=== PATIENT | female | born 1965 | race Caucasian/White ===

== ENCOUNTER → 2020-01-18 07:50 | Outpatient (BNVA) | payer OTHER, SELFPAY | PROVIDERS: PCP Internal Medicine; Referring Provider Internal Medicine; Visit Provider Obstetrics & Gynecology | DX: Z76.89 Persons encountering health services in other specified circumstances (principal) ==

== ENCOUNTER 2020-01-31 07:17 | Outpatient (REF) | payer OTHER, SELFPAY ==
--- NOTE | 2020-01-31 07:21 | MM_ITS ---
EXAMINATION: MM SCREENING DIGITAL BREAST TOMOSYNTHESIS, BILATERAL CLINICAL INFORMATION: Screening. Asymptomatic. The lifetime risk of breast cancer based on the Tyrer-Cuzick Model is 13%. COMPARISON: Mammography: 01/22/2019, 12/23/2017 TECHNIQUE: Digital breast tomosynthesis is performed in both the craniocaudal and mediolateral oblique views along with computer-aided detection (CAD). Synthesized 2D images are generated from the tomosynthesis. Additional left MLO view is provided. FINDINGS: The breasts are heterogeneously dense, which may obscure small masses (ACR BI-RADS breast composition Category c). Breast tissue composition borders on average fibroglandular. There are no significant masses, abnormal calcifications, or other abnormalities. MM/MM tomosynthesis screening BI IMPRESSION: No mammographic evidence of malignancy. ASSESSMENT: BI-RADS 1: Negative RECOMMENDATION: Routine annual mammography screening. This patient's information was entered into a reminder system with a target due date for their next mammogram.
== END 2020-01-31 07:18 | disposition home or self-care (01) ==
LOC: HO.MAMMO 07:17
PROVIDERS: PCP Internal Medicine; Visit Provider Internal Medicine
DX: Z12.31 Encounter for screening mammogram for malignant neoplasm of breast (principal)
CPT/HCPCS: 77063; 77067

== ENCOUNTER 2021-05-04 05:59 | Outpatient (REF) | payer OTHER, SELFPAY ==
[2021-05-04 06:10] LABS: MANUAL DIFF FLAG NO
[2021-05-04 07:21] LABS: Basophils Absolute Auto 0.1 X10*3/uL (0.0-0.2); Basophils Percent Auto 1.1 % (0-2); Eosinophils Absolute Auto 0.2 X10*3/uL (0.0-0.4); Eosinophils Percent Auto 3.3 % (0-4); Hematocrit 41.5 % (37.0-47.0); Hemoglobin 13.7 g/dl (12.0-16.0); Imm Gran Abs Auto 0.01 X10*3/uL (0.00-0.03); Imm Gran Pct Auto 0.2 % (0.0-0.4); Lymphocytes Absolute Auto 1.8 X10*3/uL (1.2-4.9); Lymphocytes Percent Auto 28.1 % (20-40); Mean Corpuscular Hemoglobin 29.7 pg (27.0-33.0); Mean Platelet Volume 10.7 fL (9.4-12.3); Monocytes Absolute Auto 0.5 X10*3/uL (0.1-1.2); Neutrophils Absolute Auto 3.8 x10*3/uL (2.0-8.3); Neutrophils Percent Auto 59.3 % (45-73); Platelet Count 256 X10*3/uL (160-400); Red Blood Count 4.61 X10*6/uL (4.20-5.50); Red Cell Distribution Width 12.5 % (11.0-16.0); White Blood Count 6.4 X10*3/uL (4.8-10.8)
[2021-05-04 08:07] LABS: Alanine Aminotransferase 23 U/L (0-31); Albumin Level 4.5 g/dL (3.5-5.0); Alkaline Phosphatase 97 U/L (39-117); Anion Gap 11 (12-20); Aspartate Amino Transferase 17 U/L (5-31); Bilirubin Total 0.3 mg/dL (0.0-1.0); Blood Urea Nitrogen 14 mg/dL (9-16); Carbon Dioxide 29 mmol/L (22-29); Chloride 105 mmol/L (96-108); Cholesterol 303 mg/dL; Estimated Glomerular Filt Rate > 60; Glucose Fasting 103 mg/dL (60-99); HDL Cholesterol 39 mg/dL; LDL Cholesterol Calculated 226 mg/dl; Potassium 5.2 mmol/L (3.3-5.1); Sodium 140 mmol/L (135-145); Total Protein 7.2 g/dL (6.5-8.0); Triglycerides 193 mg/dL
== END 2021-05-04 06:00 | disposition home or self-care (01) ==
LOC: HO.LAB 05:59
PROVIDERS: PCP Internal Medicine; Visit Provider Internal Medicine
DX: Z00.00 Encounter for general adult medical examination without abnormal findings (principal)
CPT/HCPCS: 36415; 80053; 80061; 85025

== ENCOUNTER → 2021-06-14 13:29 | Outpatient (BNVA) | payer OTHER, SELFPAY | PROVIDERS: PCP Internal Medicine; Visit Provider Advanced Practice Midwife | DX: Z13.89 Encounter for screening for other disorder (principal) ==

== ENCOUNTER 2021-06-19 08:21 | Outpatient (REF) | payer OTHER, SELFPAY | END 2021-06-19 08:22 | disposition home or self-care (01) | LOC: HO.LAB 08:21 | PROVIDERS: Visit Provider Advanced Practice Midwife | DX: N90.89 Other specified noninflammatory disorders of vulva and perineum (principal) | CPT/HCPCS: 56605; 88305; 88312 ==

== ENCOUNTER → 2021-06-26 14:49 | Outpatient (BNVA) | payer OTHER, SELFPAY | PROVIDERS: PCP Internal Medicine; Visit Provider Advanced Practice Midwife | DX: Z13.89 Encounter for screening for other disorder (principal) ==

== ENCOUNTER 2021-07-11 14:23 | Outpatient (REF) | payer OTHER, SELFPAY ==
--- NOTE | ~2021-07-11 | MM_ITS ---
EXAMINATION: BONE DENSITOMETRY CLINICAL INDICATION: Nicotine dependence, unspecified, uncomplicated. COMPARISON: None (current study represents initial baseline exam). TECHNIQUE: Using a [employer] DXA System (software version: 13.1) manufactured by [employer], dual-energy x-ray absorptiometry was performed of the lumbar spine and left hip. The images are of good technical quality. Summary results are attached. FINDINGS: AP SPINE L1-L4: BMD 1.055 g/cm2, Z-score -0.8, T-score -1.0, normal. LEFT FEMUR, NECK: BMD 0.791 g/cm2, Z-score -1.1, T-score -1.8, osteopenia. LEFT FEMUR, TOTAL: BMD 0.870 g/cm2, Z-score -0.8, T-score -1.1, osteopenia. IDENTIFIED RISK FACTORS: Low calcium intake, tobacco use (current smoker), menopause. HISTORY OF FRACTURE: None listed. MEDICATIONS: None listed. MM/XR DEXA axial skeleton IMPRESSION: 1. DIAGNOSIS: Osteopenia based on the lowest T-score value of -1.8 in the femoral neck applying World Health Organization criteria. 2. 10-YEAR FRACTURE RISK PREDICTION, FRAX: Major osteoporotic fracture (clinical spine, forearm, hip or shoulder) 7.2%. Hip fracture 1.2%. 3. Treatment Recommendations: NOF guidelines recommend consideration for treatment in postmenopausal women and men age 50 and older presenting with the following: -A hip or vertebral (clinical or morphometric) fracture. -T-score less than or equal to -2.5 at the femoral neck or spine after appropriate evaluation to exclude secondary causes. -Low bone mass at the hip or spine and a 10-year fracture probability by FRAX of greater than or equal to 3% for hip fracture or greater than or equal to 20% for major osteoporotic fracture based on the [place] adapted WHO algorithm. 4. Other Recommendations: All treatment decisions require clinical judgment and consideration of individual patient factors, including patient preferences, comorbidities, previous drug use, risk factors not captured in the FRAX model (e.g. frailty, falls, vitamin D deficiency, increased bone turnover, interval significant decline in bone density) and possible under or overestimation of fracture risk by FRAX. Additional medical evaluation for secondary cause of low bone mineral density may be appropriate. FUTURE SCAN RECOMMENDATION: People with diagnosed cases of osteoporosis or at high risk for fracture should have regular bone mineral density tests. For patients eligible for Medicare, routine testing is allowed once every 2 years. The testing frequency can be increased to one year for patients who have rapidly progressing disease, those who are receiving or discontinuing medical therapy to restore bone mass, or have additional risk factors.
== END 2021-07-11 14:24 | disposition home or self-care (01) ==
LOC: HO.MAMMO 14:23
PROVIDERS: Visit Provider Advanced Practice Midwife
DX: Z13.820 Encounter for screening for osteoporosis (principal); Z78.0 Asymptomatic menopausal state; F17.200 Nicotine dependence, unspecified, uncomplicated
CPT/HCPCS: 77080

== ENCOUNTER 2021-10-31 06:20 | Outpatient (REF) | payer OTHER, SELFPAY ==
--- NOTE | ~2021-10-31 | XR_ITS ---
EXAMINATION: XR CHEST CLINICAL INFORMATION: Cough. Rule out lesion. COMPARISON: None TECHNIQUE: 2 views of the chest were obtained. FINDINGS: No significant abnormality is noted involving the heart, lungs, mediastinum, bony thorax or soft tissues. XR/XR chest 2V IMPRESSION: Unremarkable examination.
[2021-10-31 06:35] LABS: MANUAL DIFF FLAG NO
[2021-10-31 07:26] LABS: Basophils Absolute Auto 0.1 X10*3/uL (0.0-0.2); Eosinophils Absolute Auto 0.2 X10*3/uL (0.0-0.4); Eosinophils Percent Auto 2.6 % (0-4); Hemoglobin 13.8 g/dl (12.0-16.0); Imm Gran Abs Auto 0.01 X10*3/uL (0.00-0.03); Imm Gran Pct Auto 0.2 % (0.0-0.4); Lymphocytes Percent Auto 33.3 % (20-40); Mean Corpuscular HGB Conc 32.9 g/dl (31.0-35.0); Mean Corpuscular Hemoglobin 29.6 pg (27.0-33.0); Mean Corpuscular Volume 90.1 fL (80.0-98.0); Mean Platelet Volume 11.2 fL (9.4-12.3); Monocytes Absolute Auto 0.5 X10*3/uL (0.1-1.2); Monocytes Percent Auto 7.6 % (2-11); Neutrophils Absolute Auto 3.4 x10*3/uL (2.0-8.3); Neutrophils Percent Auto 55.3 % (45-73); Platelet Count 243 X10*3/uL (160-400); Red Blood Count 4.66 X10*6/uL (4.20-5.50); Red Cell Distribution Width 12.6 % (11.0-16.0); White Blood Count 6.1 X10*3/uL (4.8-10.8)
[2021-10-31 07:51] LABS: Alanine Aminotransferase 24 U/L (0-31); Albumin Level 4.5 g/dL (3.5-5.0); Alkaline Phosphatase 88 U/L (39-117); Anion Gap 14 (12-20); Aspartate Amino Transferase 19 U/L (5-31); Bilirubin Total 0.3 mg/dL (0.0-1.0); Blood Urea Nitrogen 13 mg/dL (9-16); C Reactive Protein 0.08 mg/dL (< or = 0.50); Calcium 9.7 mg/dL (8.4-10.2); Carbon Dioxide 26 mmol/L (22-29); Chloride 107 mmol/L (96-108); Cholesterol 188 mg/dL; Estimated Glomerular Filt Rate > 60; Glucose Fasting 105 mg/dL (60-99); HDL Cholesterol 41 mg/dL; LDL Cholesterol Calculated 118 mg/dl; Potassium 5.2 mmol/L (3.3-5.1); Sodium 142 mmol/L (135-145); Total Protein 7.1 g/dL (6.5-8.0); Triglycerides 145 mg/dL
[2021-10-31 08:09] LABS: Vitamin B12 334 pg/mL (200-900)
== END 2021-10-31 06:21 | disposition home or self-care (01) ==
LOC: HO.XRAY 06:20
PROVIDERS: PCP Internal Medicine; Visit Provider Internal Medicine
DX: E78.00 Pure hypercholesterolemia, unspecified (principal); R25.1 Tremor, unspecified; R05.9 Cough, unspecified
CPT/HCPCS: 36415; 71046; 80053; 80061; 82550; 82607; 85025; 86140

== ENCOUNTER 2022-04-25 11:36 | Outpatient (REF) | payer OTHER, SELFPAY ==
[2022-04-25 13:00] LABS: Influenza A PCR NEGATIVE (Negative); Influenza B PCR NEGATIVE (Negative); Resp Syncy Virus RNA Qual PCR NEGATIVE (Negative); SARS COV2 PCR INHOUSE NEGATIVE (Negative)
== END 2022-04-25 11:37 | disposition home or self-care (01) ==
LOC: HO.LNP 11:36
PROVIDERS: Visit Provider Nurse Practitioner Family
DX: Z20.822 Contact with and (suspected) exposure to COVID-19 (principal); J06.9 Acute upper respiratory infection, unspecified
CPT/HCPCS: 0241U

== ENCOUNTER 2022-10-17 12:33 | Outpatient (AMB) | payer OTHER, SELFPAY ==
--- NOTE | 2022-10-17 12:55 | MHC.OFFVIS ---
Intake Vital Signs 10/17/22 12:57 Height 5 ft 11 in Weight 167 lb BMI 23.3 BP 120/80 Intake Visit Reasons: Annual Intake Note: The patient agreed to use of a medical doctor during this encounter. Scribed for ARDEN Villeda by Gracy Delgado medical doctor, on 10/17/2022 at 1:09 pm EST. Student Services Advisor: Student Services Advisor Present ([place]) Allergies No Known Allergies Allergy (Verified 10/17/22 12:56) Post menopausal: Yes HPI HPI Comments History of Present Illness Details She is a postmenopausal woman presenting for annual exam. Doing well with no supervisor cytology concerns. Patient admits she tries to eat a healthy diet including Calcium and Vitamin D. She stays active with exercise. Currently not sexually active. Denies vaginal itching and irritation. STD screening offered; she accepts. Denies family hx of colon cancer. Last pap smear 12/08/17. Last mammogram 01/31/20. UTD on colonoscopy. She is unsure of the return date and is going to confirm with Dr. Liu's office for the next time her colonoscopy should be scheduled. Reports smoking but has lessen intake. PFSH Medical History History of thyroid nodule Hypercholesterolemia Menopausal disorder Smoking Surgical History H/O thyroidectomy Family History (Updated 10/17/22 @ 13:00 by USAMA Mason) Sister Breast cancer, Onset Age: 50 Maternal Grandmother Ovarian cancer Social History (Updated 10/17/22 @ 13:00 by USAMA Mason) Alcohol intake: never Patient Tobacco Use Status: Current everyday Tobacco user Cigarettes Per Day: 15 Sexual orientation: Straight/Heterosexual Gender identity: Female Female Reproductive History Menstrual Age of Menarche: 13 Menopause type: natural Total pregnancies: 2 Full term: 2 Number of Living Children: 2 Date of last pap smear: 12/08/17 (neg pap and hpv) Date of Mammogram: 01/31/20 Physical Exam Vital Signs: Last Vital Signs BP 120/80 10/17/22 12:57 BMI result Body Mass Index 23.3 Const General: cooperative, healthy appearing, no acute distress, well developed and alert Orientation/consciousness: patient oriented x3 HEENT Head: Yes normal to inspection Eyes General: appearance normal, both eyes and all related structures Neck Neck: Yes normal visual inspection Thyroid: Thyroid normal Chest Chest palpation & inspection: normal inspection of the chest Breast/axilla inspection: normal inspection of the breasts (no puckering, dimpling, peau de orange, retraction, discharge, masses) Breast/axilla palpation: normal palpation of the breasts Resp Effort & Inspection: normal respiratory effort GI Inspection: Yes normal to inspection Palpation (GI): Soft to palpation (to palpation) Rectal Exam - Female: deferred General: Yes bladder normal to inspection External Female Exam: normal external appearance and normal appearance of the urethra Speculum Exam - Vagina: normal appearance of the vagina, normal palpation and vagina atrophic Speculum Exam - Cervix: normal appearance of the cervix, normal palpation and Other cervical findings present (bled slightly with pap) Bimanual exam- vagina & uterus: normal palpation and normal palpation Bimanual Exam- Adnexa, other: normal adnexae and no masses Skin General skin exam: no rashes or lesions noted Neuro General: patient oriented x3 Cognition (Neuro): normal cognition Extrem General: Yes normal to inspection Psych Attitude: cooperative Thought process: Normal thought process present Assessment & Plan Assessment & Plan (1) Encounter for well woman exam: Code(s): Z01.419 - Encounter for gynecological examination (general) (routine) without abnormal findings Plan: Discussed: Current recommendations for pap smears per ASCCP guidelines. Breast awareness and periodic self breast exams. Encouraged yearly mammograms. Mammogram ordered. Maintaining a healthy lifestyle including a well balanced diet including Calcium and Vitamin D and routine exercise. BV testing and GC/CT panel done today. Await results and treat accordingly. Encourage to lower tobacco intake then quit. Contact office with any PMB. Encouraged patient to sign up for patient portal. All of her questions and concerns were addressed to the best of my ability RTO in 1 year for AG. (2) Potential exposure to STD: Code(s): Z20.2 - Contact with and (suspected) exposure to infections with a predominantly sexual mode of transmission Orders: Orders MM tomosynthesis screening BI Today Z12.31 - Encounter for screening mammogram for malignant neoplasm of breast CT NG by PCR Today Z20.2 - Contact with and (suspected) exposure to infections with a predominantly sexual mode of transmission Pap Smear Today Z01.419 - Encounter for gynecological examination (general) (routine) without abnormal findings Coding Level of Care Code Est Pt Prev Care 40-64y(49605) Diagnoses Encounter for well woman exam Z01.419 Potential exposure to STD Z20.2
[2022-10-17 12:57] VITALS: BP 120/80; BMI 23.3
== END 2022-10-17 13:22 | disposition home or self-care (01) ==
LOC: HO.HWS 12:33
PROVIDERS: PCP Internal Medicine; Visit Provider Advanced Practice Midwife
DX: Z01.419 Encounter for gynecological examination (general) (routine) without abnormal findings (principal); Z20.2 Contact with and (suspected) exposure to infections with a predominantly sexual mode of transmission
CPT/HCPCS: 99396

== ENCOUNTER 2022-10-17 12:33 | Outpatient (REF) | payer OTHER, SELFPAY ==
[2022-10-17 18:09] LABS: CT PCR NOT DETECTED (Not Detect.); NG PCR NOT DETECTED (Not Detect.)
[2022-10-24 22:18] LABS: HPV mRNA E6/E7 rflx Not Detected (Not Detected)
== END 2022-10-17 12:34 | disposition home or self-care (01) ==
LOC: HO.LNP 12:33
PROVIDERS: PCP Internal Medicine; Visit Provider Advanced Practice Midwife
DX: Z01.419 Encounter for gynecological examination (general) (routine) without abnormal findings (principal); Z11.51 Encounter for screening for human papillomavirus (HPV); Z20.2 Contact with and (suspected) exposure to infections with a predominantly sexual mode of transmission
CPT/HCPCS: 0353U; 87624; 88142

== ENCOUNTER 2022-11-13 12:55 | Outpatient (REF) | payer OTHER, SELFPAY ==
--- NOTE | ~2022-11-13 | MM_ITS ---
EXAMINATION: MM SCREENING DIGITAL BREAST TOMOSYNTHESIS, BILATERAL CLINICAL INFORMATION: Screening. Asymptomatic. COMPARISON: Mammography: 01/31/2020, 01/22/2019, 12/23/2017, and dating back to 2013. TECHNIQUE: Digital breast tomosynthesis is performed in both the craniocaudal and mediolateral oblique views along with computer-aided detection (CAD). Synthesized 2D images are generated from the tomosynthesis. FINDINGS: The breasts are heterogeneously dense, which may obscure small masses (ACR BI-RADS breast composition Category c). There are no suspicious masses, suspicious grouped calcifications, or areas of architectural distortion. The parenchymal pattern is stable from prior exams. MM/MM tomosynthesis screening BI IMPRESSION: No mammographic evidence of malignancy. ASSESSMENT: BI-RADS BI-RADS 1 - Negative RECOMMENDATION: Routine annual mammography screening. 1 year F/U This examination should not preclude the clinical evaluation of a suspicious palpable abnormality. This patient's information was entered into a reminder system with a target due date for their next mammogram.
== END 2022-11-13 12:56 | disposition home or self-care (01) ==
LOC: HO.MAMMO 12:55
PROVIDERS: PCP Internal Medicine; Visit Provider Advanced Practice Midwife
DX: Z12.31 Encounter for screening mammogram for malignant neoplasm of breast (principal)
CPT/HCPCS: 77063; 77067

== ENCOUNTER → 2022-11-13 12:58 | Outpatient (BNV) | payer OTHER, SELFPAY | PROVIDERS: PCP Internal Medicine; Visit Provider Radiology Diagnostic Radiology | DX: Z12.31 Encounter for screening mammogram for malignant neoplasm of breast (principal) | CPT/HCPCS: 77063; 77067 ==

== ENCOUNTER 2022-11-30 19:14 | Emergency (ER) | payer OTHER, SELFPAY ==
--- NOTE | ~2022-11-30 | XR_ITS ---
EXAMINATION: XR CHEST CLINICAL INFORMATION: Pain left leg status post fall COMPARISON: Prior chest x-ray 10/31/2021 TECHNIQUE: 2 views of the chest were obtained. FINDINGS: No significant abnormality is noted involving the heart, lungs, mediastinum, bony thorax or soft tissues. XR/XR chest 2V IMPRESSION: Unremarkable examination.
[2022-11-30 20:15] VITALS: BP 138/68; PULSE 80; RESP 18; TEMP 36.7; O2SAT 99; BMI 23.3
[2022-11-30 23:29] VITALS: BP 114/57; PULSE 65; RESP 14; O2SAT 95
--- NOTE | 2022-11-30 23:55 | ED.FALL ---
HPI - Fall General Chief Complaint: Fall Stated Complaint: fall Time Seen by Provider: 11/30/22 23:01 History of Present Illness HPI Narrative: Patient is a 56-year-old female status post accidental fall. Patient was on top of a roof. Subsequently fell on the gutter. Patient claims that she landed on the garage part of the roof. Approximately a 3-4 feet fall. He hit her left chest. Patient denies any head injury. Denies any nausea vomiting. Denies any focal weakness. She is from home. Complaining of pain localized to the area. There was no loss of consciousness. Related Data Home Medications Medication Instructions Recorded Confirmed atorvastatin 20 mg tablet 20 mg PO DAILY 06/14/21 Previous Rx's Medication Instructions Recorded ibuprofen 400 mg tablet 400 mg PO Q6H PRN pain #20 tabs 12/01/22 Allergies Allergy/AdvReac Type Severity Reaction Status Date / Time No Known Allergies Allergy Verified 10/17/22 12:56 Review of Systems Review of Systems: Positive accidental fall. Positive pain to the left lower ribs Yes all other systems are reviewed and are negative PMFSH Past Medical History Attestation statement: The following information was validated with the patient. Medical History Menopausal disorder Smoking History of thyroid nodule Hypercholesterolemia Surgical History H/O thyroidectomy Family History Family History Sister Breast cancer, Onset Age: 50 Maternal Grandmother Ovarian cancer Social History Social History Alcohol intake: never Patient Tobacco Use Status: Current everyday Tobacco user Cigarettes Per Day: 15 Advance Directives: No Advance Directives Information Provided: No Sexual orientation: Straight/Heterosexual Gender identity: Female Physical Exam Vital Signs: Vital Signs: Last Vital Signs Temp 98.0 F 11/30/22 20:15 Pulse 65 11/30/22 23:29 Resp 14 11/30/22 23:29 BP 114/57 L 11/30/22 23:29 Pulse Ox 95 11/30/22 23:29 O2 Del Method Room Air 11/30/22 23:29 BMI result Body Mass Index 23.3 Appearance: Alert. Oriented X3. No acute distress. Eyes: Pupils equal, round and reactive to light. ENT: Pharynx normal. Neck: Normal inspection. Neck supple. No lymph nodes noted. No crepitus CVS: Normal heart rate and rhythm. Pulses normal. Normal S1 and S2 Respiratory: No respiratory distress. Breath sounds normal. No Wheezing. No rales. There is no crepitus on palpation. Abdomen: Soft and nontender. No rigidity. No distention. good BS x4 Skin: Skin warm and dry. Normal skin color. Normal skin turgor. Extremities: No lower extremity edema. Neurovascular intact to all extremities. No Lacerations. No Rash Neuro: Oriented X 3. No motor deficit. No sensory deficit. Moving all extermities. No slurred speech Medical Decision Making Medical Decision Making [facility] Narrative: A fast ultrasound was done. There is no gross evidence of solid organ injury there is no free fluid in the abdomen. Patient well appearing. My interpretation of patient's chest x-ray showed no acute fracture. No pneumothorax. No widened mediastinum. Patient well-appearing in no distress will ask patient to take Motrin for pain. In stable condition. Differential Diagnosis Differential Diagnoses: The differential diagnosis associated with the presentation includes Rib fracture, pneumothorax, solid organ injury Lab Data [facility] Lab Attestation statement: I reviewed the patient's lab results. Independent Interpretation I performed an independent interpretation of an: Plain X-Ray Interpretation: No acute fracture no widened mediastinum Radiology Impression Discussion of test interpretation with radiology: I have reviewed the radiologist's reading. Independent Historian Clinical information obtained from an independent historian. History obtained from or confirmed by: Friend External Record Review External record reviewed: Office record Previous OBGYN record reviewed Discharge Plan Discharge Clinical Impression: Contusion Patient Disposition: Home, Self-Care Instructions: Contusion in Adults (ED) Prescriptions: New ibuprofen 400 mg tablet 400 mg PO Q6H PRN (Reason: pain) Qty: 20 0RF No Action atorvastatin 20 mg tablet 20 mg PO DAILY Referrals: Karthik Lujan MD [Primary Care Provider] - 12/03/22
== END 2022-12-01 00:35 | disposition home or self-care (01) ==
PROVIDERS: Emergency Provider Emergency Medicine Emergency Medical Services; PCP Internal Medicine
DX: S20.212A Contusion of left front wall of thorax, initial encounter (principal); W13.2XXA Fall from, out of or through roof, initial encounter; F17.210 Nicotine dependence, cigarettes, uncomplicated; Y93.9 Activity, unspecified; Y92.018 Other place in single-family (private) house as the place of occurrence of the external cause; Y99.9 Unspecified external cause status
CPT/HCPCS: 71046; 99283; 99284

== ENCOUNTER 2023-10-29 08:44 | Outpatient (AMB) | payer OTHER, SELFPAY ==
--- NOTE | 2023-10-29 08:56 | A.OFFVIS_ITS ---
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 She is doing well with no concerns. Attempting to eat a healthy diet with calcium and vitamin D and stays active with exercise. Currently not sexually active. Denies any vaginal dryness or irritation. STI testing offered; she declined. Last pap smear; 2022. Last mammogram; 2022. Colonoscopy is UTD. Denies any family history of colon cancer. Admits to cutting down smoking. [facility] Medical History (Updated 10/29/23 @ 09:16 by Purvi Del Valle CNM) Menopausal disorder Smoking History of thyroid nodule Hypercholesterolemia Surgical History (Updated 10/29/23 @ 09:20 by Purvi Del Valle CNM) H/O colonoscopy H/O thyroidectomy Family History (Updated 10/29/23 @ 09:21 by Purvi Del Valle CNM) Sister Breast cancer Maternal Grandmother Ovarian cancer Social History Alcohol intake: never Patient Tobacco Use Status: Current everyday Tobacco user Cigarettes Per Day: 15 Sexual orientation: Straight/Heterosexual Gender identity: Female Female Reproductive History Menstrual Age of Menarche: 13 Menopause type: natural Total pregnancies: 2 Full term: 2 Number of Living Children: 2 Date of last pap smear: 10/17/22 (neg pap and hpv) Date of Mammogram: 11/13/22 (Birad 1) Date of last Bone Density Screenin07/11/21 Review of Systems Const All systems reviewed & are unremarkable except as noted in HPI and below Reports as per HPI Eyes Reports no additional complaints ENT Reports no additional complaints Card Reports no additional complaints Resp Reports no additional complaints GI Reports as per HPI and Reports no additional complaints Reports as per HPI Musc Reports no additional complaints Skin/Breast Reports as per HPI Neuro Reports no additional complaints Psych Reports no additional complaints Endo Reports no additional complaints Zheng/Lymph Reports no additional complaints Aller/Immun Reports no additional complaints Physical Exam Vital Signs: Last Vital Signs BP 116/76 10/29/23 08:57 BMI result Body Mass Index 23.4 Const General: cooperative, healthy appearing, no acute distress, well developed and alert Orientation/consciousness: patient oriented x3 HEENT Head: Yes normal to inspection Eyes General: appearance normal, both eyes and all related structures Neck Neck: Yes normal visual inspection Thyroid: Thyroid normal Chest Chest palpation & inspection: normal inspection of the chest and other (no puckering, dimpling, peau de orange, retraction, discharge, masses) Breast/axilla inspection: normal inspection of the breasts Breast/axilla palpation: normal palpation of the breasts Resp Effort & Inspection: normal respiratory effort GI Inspection: Yes normal to inspection Palpation (GI): Soft to palpation Rectal Exam - Female: deferred General: Yes bladder normal to palpation External Female Exam: normal external appearance and normal appearance of the urethra Speculum Exam - Vagina: normal appearance of the vagina, normal palpation, normal vaginal discharge and vagina atrophic Speculum Exam - Cervix: normal appearance of the cervix and normal palpation Bimanual exam- vagina & uterus: normal bimanual exam, normal palpation, uterine size normal, bladder normal to palpation, normal palpation and non-tender Bimanual Exam- Adnexa, other: no masses Skin Other: Rash bilateral gluteal area appears as psoriasis General skin exam: no rashes or lesions noted Rashes: no rashes Neuro General: patient oriented x3 Cognition (Neuro): normal cognition Extrem General: Yes normal to inspection Psych Attitude: cooperative Thought process: Normal thought process present Assessment & Plan Assessment & Plan (1) Encounter for well woman exam with routine gynecological exam: Code(s): Z01.419 - Encounter for gynecological examination (general) (routine) without a bnormal findings Category: Medical Plan Discussed: Current recommendations for pap smears per ASCCP guidelines. Breast awareness, periodic self breast exams and yearly mammogram. Maintain a healthy lifestyle, well balanced diet including Calcium 1,200 mg and Vitamin D 600 IU daily, and routine exercise. Follow up with Dermatology for a skin rash. Contact the office with any postmenopausal bleeding. Patient verbalizes understanding and agrees to the plan of care. She was given opportunity to ask questions and all questions were answered to the best of my ability. 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 This note is constructed using voice recognition software. While every effort has been made to ensure accuracy, media librarian errors may have been included. Coding Level of Care Code Est Pt Prev Care 40-64y(14811) Diagnoses Encounter for well woman exam with routine gynecological exam Z01.419
[2023-10-29 08:57] VITALS: BP 116/76; BMI 23.4
== END 2023-10-29 09:30 | disposition home or self-care (01) ==
PROVIDERS: PCP Internal Medicine; Visit Provider Advanced Practice Midwife
DX: Z01.419 Encounter for gynecological examination (general) (routine) without abnormal findings (principal)
CPT/HCPCS: 99396

== ENCOUNTER → 2023-10-29 08:44 | Outpatient (BNVA) | payer OTHER, SELFPAY | PROVIDERS: PCP Internal Medicine; Visit Provider Advanced Practice Midwife ==

== ENCOUNTER 2023-11-19 14:19 | Outpatient (REF) | payer OTHER, SELFPAY ==
--- NOTE | ~2023-11-19 | MM_ITS ---
EXAMINATION: MM SCREENING DIGITAL BREAST TOMOSYNTHESIS, BILATERAL CLINICAL INFORMATION: Screening. Asymptomatic. COMPARISON: Mammography: Comparison is made with available priors TECHNIQUE: Digital breast tomosynthesis is performed in both the craniocaudal and mediolateral oblique views along with computer-aided detection (CAD). Synthesized 2D images are generated from the tomosynthesis. FINDINGS: The breasts are heterogeneously dense, which may obscure small masses (ACR BI-RADS breast composition Category c). There are no significant masses, abnormal calcifications, or other abnormalities. MM/MM tomosynthesis screening BI IMPRESSION: No mammographic evidence of malignancy. ASSESSMENT: BI-RADS BI-RADS 1 - Negative RECOMMENDATION: Routine annual mammography screening. 1 year F/U This examination should not preclude the clinical evaluation of a suspicious palpable abnormality. This patient's information was entered into a reminder system with a target due date for their next mammogram. Electronically signed by: Sharon Bliss DO 12/12/2023 08:33 PM EDT
== END 2023-11-19 14:20 | disposition home or self-care (01) ==
LOC: HO.MAMMO 14:19
PROVIDERS: PCP Internal Medicine; Visit Provider Internal Medicine
DX: Z12.31 Encounter for screening mammogram for malignant neoplasm of breast (principal)
CPT/HCPCS: 77063; 77067

== ENCOUNTER → 2023-11-19 14:30 | Outpatient (BNV) | payer OTHER, SELFPAY | PROVIDERS: PCP Internal Medicine; Visit Provider Internal Medicine | DX: Z12.31 Encounter for screening mammogram for malignant neoplasm of breast (principal) | CPT/HCPCS: 77063; 77067 ==

== ENCOUNTER 2024-06-25 06:58 | Day surgery (SDC) | payer OTHER, SELFPAY ==
--- OUTSIDE RECORDS SUMMARY | 2024-05-26 16:48 | XMS_ITS ---
Author Organization [facility] Address [address] [place] [address] Care Team Providers Care Nib Finisher Name Role Phone Karthik Lujan MD Primary Care Provider Unavailmarianna Liu Jr, Brandan Kim REASON FOR VISIT need insurance and ID numbers Encounters Encounter Location Date Provider Diagnosis [facility] [address] [place] [address] 05/05/2024 Brandan Liu Jr Plan Of Treatment Next Appt Details Provider Name:Brandan morillo Jr, 06/25/2024 08:20:00 AM, [address] [place] [address] , [place], [place], [phone], Progress Notes * KEI WOODENDOB: 7 (58 yo F)Acc No.[id number]:05/05/2024 Patient:?ISRAEL ABELARDO :1965???Age:58 Y???Sex:Female Address:[address], , [place] [address] * true * Date:? Generated for Printi memo/Anthony/eTransmitting on:?05/26/2024 04:47 PM EST
--- OUTSIDE RECORDS SUMMARY | 2024-05-26 16:48 | XMS_ITS ---
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 Role Phone Karthik Lujan MD Primary Care Provider Brandan Gutierrez Jr [phone] Allergies No Known Allergies REASON FOR VISIT Patient presents today for a colon screening Medications Medication SIG (Take, Route, Frequency, Duration) Notes Start Date End Date Status lipitor Active Immunizations Vaccine Route Administration Date Status Comme nts Influenza Unknown 05/17/2024 Refused Social History Tobacco Use: Social History Observation Description Date Details (start date - stop date) Current Smoker NA - NA Tobacco Use/Smoking Question Answer Notes Patient is a current smoker How often do you smoke cigarettes? every day How many cigarettes a day do you smoke? 11-20 Alcohol Screen Question Answer Notes Did you have a drink contain ing alcohol in the past year? Yes How often did you have a dri nk containing alcohol in the past year? Never (0 point) How many drinks did you have on a typical day when you were drinking in the past year? 1 or 2 drinks (0 point) How often did you have 6 or more drinks on one occasion in the past year? Never (0 point) Points 0 Interpretation Negative Vital Signs Temperature 97.1 degrees Fahrenheit 05/17/19 25 Blood pressure systolic 001 mm Hg 05/17/19 25 Blood pressure diastolic 01 mm Hg 025 Height 71 in 05/17/2024 Weight 169 lbs 05/17/2024 BMI 23.57 kg/m2 05/17/2024 Encounters Encounter Location Date Provider Diagnosis [facility] [address] [place] [address] 05/17/2024 Brandan Liu Jr Colon cancer screening Z12.11 Assessments Encounter Date Diagnosis (ICD Code) Assessment Notes Treatment Notes Treatment Clinical Notes Section Notes 05/17/2024 Colon cancer screening (ICD-10 - Z12.11) Colonoscopy material was printed Plan Of Treatment Treatment Notes Assessment Notes Colon cancer screening Colonoscopy mater ial was printed Future Test Test Name Order Date COLONOSCOPY 05/17/2024 Next Appt Details Provider Name:Brandan morillo Jr, 06/25/2024 08:20:00 AM, [address] [facility] , [place], [place], [phone], Progress Notes * DANIEL WOODOB: 7 (58 yo F)Acc No.[id number]:05/17/2024 Progress Notes Patient:?ISRAEL ABELARDO Provider:?Brandan Liu MD :1965???Age:58 Y???Sex:Female D ate:05/17/2024 Address:[address] [place], [place] [id number] Pcp:Karthik Lujan MD Subjective: * Chief Complaints: * ???1. Patient presents today for a colon screening. * ROS:?General/Constitutional:?Change in appetite?denies.?Fatigue?denies.?ENT:?Patient denies?difficulty swallowing.?Respiratory:?Patient denies?shortness of breath.?Cardiovascular:?Patient denies?chest pain.?Gastrointestinal:?Comments?See HPI for details.?Genitourinary:?Difficulty urinating?denies.?Incontinence?denies.?Musculoskeletal:?Patient denies?muscle aches.?Skin:?Patient denies?pruritis.?Neurologic:?Patient denies?low back pain.?Psychiatric:?Patient denies?mental or physical abuse.? * Medical History:?Hyperlipide sasha, Psoriasis. * Surgical History:?thyroid vogt rgery . * Family History:?Father: dece ased, diagnosed with Colon polyps, Diabetes, Heart disease, HTN (hypertension).?Mother: alive, diagnosed with HTN (hypertension).? no known hx of colon cancer , polyps or liver ds. * Social History:?Tobacco Use:?Tobacco Use/Smoking?Patient is a?current smoker,?How often do you smoke cigarettes??every day,?How many cigarettes a day do you smoke??11-20.?Drugs/Alcohol:?Alcohol Screen?Did you have a drink containing alcohol in the past year??Yes,?How often did you have a drink containing alcohol in the past year??Never (0 point),?How many drinks did you have on a typical day when you were drinking in the past year??1 or 2 drinks (0 point),?How often did you have 6 or more drinks on one occasion in the past year??Never (0 point),?Points?0,?Interpretation?Negative.?Miscellaneous:?Marital status: . 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 * Medications:?Taking lipitor , Medication List reviewed and reconciled with the patient * Allergies:?N.K.D.A. Objective: * Vitals:?Wt: 169 lbs, Ht: 71 in, BMI:23.57Index, BP: 001/01 mm Hg, Temp: 97.1, Wt-k.66. * Examination: ???General Examination: ?GENERAL APPEARANCE:?in no acute distress.?HEAD:?normocephalic.?EYES:?sclera non-icteric.?ORAL CAVITY:?mucosa moist.?NECK/THYROID:?no lymphadenopathy.?SKIN:?anicteric.?HEART:?S1, S2 normal, no murmurs.?LUNGS:?clear to auscultation bilaterally.?CHEST:?normal shape and expansion.?ABDOMEN:?soft, nontender, nondistended, bowel sounds present, no organomegaly .?EXTREMITIES:?no clubbing, cyanosis, or edema.?PSYCH:?cognitive function intact.? Assessment: * Assessment: 1.?Colon cancer screening - Z12.11 (Primary)??? Plan: * Treatment: * Immunizations:? Influenza (Not administered - Refused: Patient decision) * Preventive Medicine:? ??Counseling:?Smoking?Patient counseled on the dangers of tobacco use and urged to quit.?05/17/2024,?Relapse prevention:?Discussed the importance of a supportive environment and helped identify them..? * * The named appointment provid er may or may not be the originator of this progress note, and it is not deemed complete until electronically signed by the appointment provider. Sign off status: Pending * Provider:?Brandan Liu MD Date:?0 05/17/2024 Generated for Jim hampton/Anthony/eTransmitting on:?05/26/2024 04:47 PM EST History and Physical Notes * Examination Category Sub-Category Detail Notes Category Not es General Examination GENERAL APPEARANCE: in no acute di stress HEAD: normocephalic EYES: sclera non-icteric NECK/THYROID: no lymphadenopathy HEART: S1, S2 normal, no mu rmurs CHEST: normal shape and exp ansion LUNGS: clear to auscultatio n bilaterally ABDOMEN: soft, nontender, non distended, bowel sounds present, no organomegaly SKIN: anicteric EXTREMITIES: no clubbing, cyanosi s, or edema PSYCH: cognitive function i ntact ORAL CAVITY: mucosa moist
--- OUTSIDE RECORDS SUMMARY | 2024-05-26 16:48 | XMS_ITS | Patient Health Record ---
Author Organization [facility] Address [address] [place] [address] Care Team Providers Care Medical Record Librarian Name Role Phone Karthik Lujan MD Primary Care Provider Unavaila ble Brandan Liu Jr Unavailable Allergies No Known Allergies Reason For Referral Referring Provider First Name Karthik Referring Provider Last Name Tai Referring Provider Speciality Internal M edicine Referred Organization [facility] Referred Provider Brandan Liu Jr Referred Address [address],[place],[address], Referred Provider Specialty Gastroentero logy General Notes Merna Angeles 025 03:56:31 PM EST > requested a [facility] referral for visit with Dr trivedi on [phone], Merna Angeles 05/11/2024 10:57:46 AM >called pt to have her request a referral too., Merna Angeles 05/11/2024 01:18:58 PM >no referral required per Dr. Lujan's office Referral Priority Routine Medications Medication SIG (Take, Route, Frequency, Duration) Notes Start Date End Date Status lipitor Active Immunizations Vaccine Route Administration Date Status Comme nts Influenza Unknown 02/25/2019 Refused Influenza Unknown 05/17/2024 Refused Social History Tobacco [...] Never (0 point) Points 0 Interpretation Negative Problems Problem Type SNOMED Code ICD Code Onset Dates Problem Status W/U Status Risk Notes Problem [id number] Colon cancer screening (Z12.11) Active confirmed Problem [id number] Encounter for other preprocedural examination (Z01.818) Active confirmed Vital Signs Temperature 97.1 degrees Fahrenheit 05/17/2024 Blood pressure diastolic 01 mm Hg 05/17/2024 Height 71 in 05/17/2024 Blood pressure systolic 001 mm Hg 05/17/2024 Weight 169 lbs 05/17/2024 BMI 23.57 kg/m2 05/17/2024 Encounters Encounter Location Date Provider Diagnosis [facility] [address] [place] [address] 05/17/2024 Brandan Liu Jr Colon cancer screening Z12.11 [facility] [address] [place] [phone] 05/05/2024 Brandan Liu Jr Assessments Encounter Date Diagnosis (ICD Code) Assessment Notes Treatment Notes Treatment Clinical Notes Section Notes 05/17/2024 Colon cancer screening (ICD-10 - Z12.11) Colonoscopy material was printed Plan Of Treatment Future Test Test Name Order Date COLONOSCOPY 05/17/2024 Next Appt Details Provider Name:Brandan morillo Jr, 06/25/2024 08:20:00 AM, [address] [place] [address] , [place], [place], [phone], Insurance Providers Payer Name Payer Address Payer Phone Subscriber Number Group Number Insured Name Patient Relationship to Insured Coverage Start Date Coverage End Date [employer] [address] [place] [phone] [id number] ABELARDO WOOD Self - patient is the insured Medical (General) History Medical History History ICD Code Hyperlipidemia psoriasis Surgical History Surgery Date(Month/Year) thyroid surgery
[2024-06-23 12:10] VITALS: BMI 23.4
--- NOTE | 2024-06-24 09:35 | P.CONAN_ITS ---
Documented by User: Tosha Nogueira NP 06/24/24 09:35 HPI - Anesthesia Eval Consult details Narrative: 58yo F for Colonoscopy [facility] Active Problems Active Problems: All Active Problems Encounter for well woman exam with routine gynecological exam (Acute) Viral upper respiratory illness (Acute) Encounter to discuss test results (Acute) Menopausal disorder (Acute) Menopausal and perimenopausal disorder (Acute) Labial lesion (Acute) Smoking (Acute) Encounter for annual routine gynecological examination (Acute) Increased risk of breast cancer (Acute) Past Medical History Medical History (Updated 10/29/23 @ 09:16 by Purvi Del Valle CNM) Menopausal disorder Smoking History of thyroid nodule Hypercholesterolemia Family History Family History (Updated 10/29/23 @ 09:21 by Purvi Del Valle CNM) Sister Breast cancer Maternal Grandmother Ovarian cancer Surgical History Surgical History (Updated 10/29/23 @ 09:20 by Purvi Del Valle CNM) H/O colonoscopy H/O thyroidectomy Social History Social History Alcohol intake: never Patient Tobacco Use Status: Current everyday Tobacco user Cigarettes Per Day: 15 Have you been hit, kicked, punched, or otherwise hurt by someone within the past year? If so, by whom?: No Are you DNR?: No Advance Directives: No Advance Directives Information Provided: Yes Sexual orientation: Straight/Heterosexual Gender identity: Female Meds Allergies Allergy/AdvReac Type Severity Reaction Status Date / Time No Known Allergies Allergy Verified 10/29/23 08:57 Home Medications ?Medication ?Instructions ?Recorded ?Confirmed ?Last Taken ?Type atorvastatin 20 mg tablet 20 mg PO DAILY 06/14/21 06/23/24 Unknown History Exam Height,Weight and Vital Signs: Height 5 ft 11 in Weight 76.204 kg Assessment and Plan Assessment Anesthesia Assessment: Chart Reviewed Documented by User: Lizz Briggs MD 06/25/24 07:25 [facility] Past Medical History Medical History (Updated 10/29/23 @ 09:16 by Purvi Del Valle CNM) Menopausal disorder Smoking History of thyroid nodule Hypercholesterolemia Family History Family History (Updated 10/29/23 @ 09:21 by Purvi Del Valle CNM) Sister Breast cancer Maternal Grandmother Ovarian cancer Family history of problems with anesthesia: No Surgical History Surgical History (Updated 10/29/23 @ 09:20 by Purvi Del Valle CNM) H/O colonoscopy H/O thyroidectomy History of Problems with Anesthesia: No Social History Social History Alcohol intake: never Patient Tobacco Use Status: Current everyday Tobacco user Cigarettes Per Day: 15 Have you been hit, kicked, punched, or otherwise hurt by someone within the past year? If so, by whom?: No Are you DNR?: No Advance Directives: No Advance Directives Information Provided: Yes Sexual orientation: Straight/Heterosexual Gender identity: Female Meds Allergies Allergy/AdvReac Type Severity Reaction Status Date / Time No Known Allergies Allergy Verified 10/29/23 08:57 Home Medications ?Medication ?Instructions ?Recorded ?Confirmed ?Last Taken ?Type atorvastatin 20 mg tablet 20 mg PO DAILY 06/14/21 06/23/24 Unknown History Exam Airway Mallampati Class: II TM Dist: >3cm Neck ROM: Full Heart: rrr Lungs: cta Assessment and Plan Assessment Anesthesia Assessment: Anesthesia Plan Discussed Final Anesthetic Review Family History of Problems with Anesthesia: No History of Problems with Anesthesia: No NPO: Yes ASA Class: II Final Preanesthetic Review: No Changes in Pt Med Stat, Meds/Allgs Chart Reviewed and Consent Obtained/Reviewed Patient Risk: Low Procedure Risk: Low Anesthetic Plan Anesthetic Plan: MAC: Disposition: Standard PACU
[2024-06-25 07:01] VITALS: BP 128/82; PULSE 106; RESP 20; TEMP 36.4; O2SAT 97
[2024-06-25] MEDS: Lactated Ringers 1,000 ML 100 ML IVCONT (07:21)
--- NOTE | 2024-06-25 07:24 | P.HPSUR_ITS ---
Pre-Procedural Eval Section A - 24 Hr Update-Section A only Date of Service: 06/25/24 Section B - Complete if H&P > 30 days Chief Complaint: Encounter for screening for malignant neoplasm of Details of Present Illness: see H&P no changes Relevant Family History (Specify if Yes): No Relevant Social History: Tobacco Use Present Medications: see Short Stay Collaborative assessment Medical History: No relevant PMH History of Previous Operations: No relevant previous surgery Allergies: Allergies Allergy/AdvReac Type Severity Reaction Status Date / Time No Known Allergies Allergy Verified 10/29/23 08:57 Review of Systems Sugical H&P ROS: Negative: Constitution, Cardiovascular, Respiratory, Neurological, Psychiatric, Hem-Onc, Allergic/Immunologic, Gastrointestinal, Genitourinary, Musculoskeletal, Integumentary, Endocrine and Eye s/Ears/Nose/Throat Exam Surgical H&P Exam: Normal: HEENT, Normal: Heart, Normal: Lungs, Normal: Extremities, Normal: Abdomen, Normal: Skin and Normal: Neurological Plan Diagnosis/Plan: Unchanged I have reviewed the history and physical and performed a pertinent physical examination on my patient. No changes have occurred unless specified. Time Spent With Patient Time: Total time managing care of this patient today ____ minutes.
--- NOTE | 2024-06-25 08:05 | PM.OP ---
Brief Operative Note Date of Service: 06/25/24 Pre-op diagnosis: screening Post-op diagnosis: same Procedure: colonoscopy Surgeon: Brandan Liu MD Anesthesia: MAC Was an Hotel Or Motel Receptionist used for this Procedure?: No Estimated blood loss (mL): 2 Pathology: other Condition: stable Disposition: PACU
[2024-06-25 08:08] VITALS: BP 102/64; PULSE 73; RESP 16; TEMP 36.6; O2SAT 99
[2024-06-25 08:23] VITALS: BP 125/59; PULSE 75; RESP 16; TEMP 36.6; O2SAT 99
--- NOTE | 2024-06-25 08:24 | OP_ITS ---
DATE OF SERVICE: 06/25/2024 SURGEON: Brandan Liu MD PREOPERATIVE DIAGNOSIS: POSTOPERATIVE DIAGNOSIS: PROCEDURE PERFORMED: Colonoscopy to terminal ileum with biopsy. ESTIMATED BLOOD LOSS: COMPLICATIONS: ANESTHESIA: ASSISTANTS: SPECIMENS: INDICATION: Colon cancer screening. MEDICATIONS: Monitored anesthesia care. DESCRIPTION OF PROCEDURE: A history and physical performed. The risks and benefits of the procedure were explained to the patient and informed consent was obtained. The patient was placed in a left lateral decubitus position. A digital rectal exam was performed and was found to be normal. The Olympus pediatric videocolonoscope was introduced into the rectum and advanced to the cecum. The cecum was identified by transillumination, palpation, and identification of ileocecal valve. Examination was performed. The scope was removed. She tolerated the procedure well and was returned to recovery area in stable condition. FINDINGS: The terminal ileum was examined and appeared normal. The visualized colonic mucosa was normal. The quality of the prep was good. A single polyp was identified at 20 cm measuring less than 5 mm. This was removed with biopsy forceps. No other polyps were seen. There was moderate diverticulosis in the sigmoid. Retroflexed examination showed some small internal hemorrhoids. IMPRESSION: Colon polyp. RECOMMENDATION: Follow up with the biopsy results. MD HUMBLE Devi/MODL / [id number]
== END 2024-06-25 08:30 | disposition home or self-care (01) ==
PROVIDERS: Visit Provider Internal Medicine Gastroenterology
PROC: 0DJD8ZZ Inspection of Lower Intestinal Tract, Via Natural or Artificial Opening Endoscopic (ICD-10-PCS; CPT 45378; principal; 2024-06-25 08:20)
DX: Z12.11 Encounter for screening for malignant neoplasm of colon (principal); Z86.0101 Personal history of adenomatous and serrated colon polyps; K63.5 Polyp of colon; K57.30 Diverticulosis of large intestine without perforation or abscess without bleeding; K64.8 Other hemorrhoids; E78.5 Hyperlipidemia, unspecified; L40.9 Psoriasis, unspecified; Z79.899 Other long term (current) drug therapy; Z90.89 Acquired absence of other organs; F17.210 Nicotine dependence, cigarettes, uncomplicated
CPT/HCPCS: 45380; 88305; J2003; J2704

== ENCOUNTER 2024-08-05 14:43 | Outpatient (AMB) | payer OTHER, SELFPAY ==
[2024-08-05 14:47] VITALS: BP 122/58; PULSE 90; RESP 14; TEMP 36.7; O2SAT 97; BMI 23.4
--- NOTE | 2024-08-05 14:47 | A.OFFPC_ITS ---
Vital Signs 08/05/24 14:47 Height 5 ft 11 in Weight 168 lb BMI 23.4 BP 122/58 L Respiration 14 Pulse 90 Pulse Source Pulse Oximeter Temp 98.0 F Temp Source Temporal Artery Scan Pulse Oximetry (%) 97 Oxygen Delivery Method Room Air Intake Visit Reasons: Routine Cable Splicing Technician Required: No Accompanied by: Self / Same As Patient Allergies No Known Allergies Allergy (Verified 08/05/24 14:47) Tobacco use date assessed: 08/05/24 Dental Screening Dental Screen Date: 08/05/24 Did you have a dental visit in the last 12 months?: Yes Did you have a dental problem in the last 6 months where you did not have access to dental care?: No Was dental information given to patient?: Patient has dentist HPI HPI Comments History of Present Illness Details The patient is a 58 year old female with a past medical history of hyperlipidemia, hypertension, hypothyroid, bursitis, low back pain, colon polyps presenting for follow up. Last seen > one year by PCP CV: On lipitor 20mg daily. No SE. No chest pain, exertional dyspnea History of right thyroidectomy. TSH stable Requests dermatology referral. Left cheek nevi has become raised Had fall from ladder. Has continued left shoulder pain Last pap smear; 2022. Last mammogram 10/2023 Colonoscopy 06/25/2024 ROS see HPI PHYSICAL EXAM: GENERAL: Alert and oriented x 3. NAD EYES: EOMI. Anicteric. HENT: Moist mucous membranes. No scleral icterus. No cervical lymphadenopathy. LUNGS: Clear to auscultation bilaterally. CARDIOVASCULAR: Regular rate and rhythm. No murmur. No JVD. ABDOMEN: Soft, non-tender +bs EXTREMITIES: No edema. Non-tender. SKIN: No rashes or lesions. Warm. NEUROLOGIC: No focal neurological deficits. CN II-XII grossly intact PSYCHIATRIC: Cooperative. Appropriate mood and affect [facility] Medical History Menopausal disorder Smoking History of thyroid nodule Hypercholesterolemia Surgical History H/O colonoscopy (~06/25/24) H/O thyroidectomy Family History Sister Breast cancer Maternal Grandmother Ovarian cancer Social History Housing: House Alcohol intake: current Alcohol intake frequency: holidays/special occasions only Patient Tobacco Use Status: Current everyday Tobacco user Cigarettes Per Day: 15 service: No Current occupational status: employed Sexual orientation: Straight/Heterosexual Gender identity: Female Cognitive needs: No Hearing needs: No Vision needs: Yes (reading glasses) Female Reproductive History Menstrual Age of Menarche: 13 Questionnaire PHQ-9 Over the last 2 weeks, how often have you been bothered by any of the following problems? 1. Little interest or pleasure in doing things: not at all 2. Feeling down, depressed, or hopeless: not at all 3. Trouble falling or staying asleep, or sleeping too much: not at all 4. Feeling tired or having little energy: not at all 5. Poor appetite or overeating: not at all 6. Feeling bad about yourself - or that you are a failure or have let yourself or your family down: not at all 7. Trouble concentrating on things, such as reading the newspaper or watching television: not at all 8. Moving or speaking so slowly that other people could have noticed. Or the opposite - being so fidgety or restless that you have been moving around a lot more than usual: not at all 9. Thoughts that you would be better off or of hurting yourself in some way: not at all Total score: 0 Depression Screening Interpretation: Negative Depression Screening Done: Yes 32377 - PHQ-9 Billing: Yes Source: Developed by Drs. Gabo Duff, Terri Morrison, Cristi Redd and colleagues, with an educational suad from [employer]. Thrive Questionnaire Date Thrive assessed: 08/05/24 I am a: Patient What is your living situation today?: I have a steady place to live Within the past 12 months, did the food you bought not last and you didn't have the money to get more?: Never true Within the past 12 months, did you worry whether your food would run out before you got money to buy more?: Never true Do you have trouble paying for medicines?: No Do you have trouble getting transportation to medical appointments?: No Do you have trouble paying your heating and electricity bill?: No Do you have trouble taking care of your child, family member or friend?: No Do you have trouble with day-to-day activities such as bathing, preparing meals, shopping, managing finances, etc.?: No Are you currently unemployed and looking for a job?: No Are you interested in more education?: No Please select the resources that you would like help with: None THRIVE Score: 0 AUDIT C Alcohol Use Questionnaire (AUDIT-C) 1. How often do you have a drink containing alcohol?: Monthly or less 2. How many drinks containing alcohol do you have on a typical day when you are drinking?: 1 or 2 3. How often do you have six or more drinks on one occasion?: Never Total Score: 1 DELISA-7 AMB Questionnaire DELISA-7 Date DELISA - 7 assessed: 08/05/24 Feeling nervous, anxious, or on edge: 0 = Not at all Not being able to stop or control worryin = Not at all Worrying too much about different things: 0 = Not at all Trouble relaxin = Not at all Being so restless that it is hard to sit still: 0 = Not at all Becoming easily annoyed or irritable: 0 = Not at all Feeling afraid as if something awful might happen: 0 = Not at all Total DELISA-7 score (0-4 normal; 5-9 mild; 10-14 moderate; 15-21 severe): 0 Source: Developed by Drs. Gabo Duff, Terri Morrison, Cristi Redd and colleagues, with an educational suad from [employer]. Physical exam (Primary Care) Vital Signs: Last Vital Signs Temp 98.0 F 08/05/24 14:47 Pulse 90 08/05/24 14:47 Resp 14 08/05/24 14:47 BP 122/58 L 08/05/24 14:47 Pulse Ox 97 08/05/24 14:47 Oxygen Delivery Method Room Air 08/05/24 14:47 BMI result Body Mass Index 23.4 Tobacco/Smoking Status: Tobacco use Status Tobacco use date assessed 08/05/24 08/05/24 14:48 Patient Tobacco Use Status Current everyday Tobacco 08/05/24 14:55 PHQ-9: PHQ-9 Score PHQ-9: Total score 0 08/05/24 15:02 Depression Screening Interpretation: Negative Thrive Assessment: Date of Thrive Assessment Date Thrive assessed 08/05/24 08/05/24 14:48 Coding Level of Care Code New Pt Level 4 (33324) Complex EM visit Add On G2211 Diagnoses Acute pain of left shoulder M25.512 Chronicity: acute Atypical nevi D22.9 Hyperlipidemia, unspecified hyperlipidemia type E78.5 Hyperlipidemia type: unspecified Additional Codes PHQ-9 - 28009 - PHQ-9 Billing: Yes ([id number]) Assessment & Plan Assessment & Plan (1) Left shoulder pain: Code(s): M25.512 - Pain in left shoulder Category: Medical Qualifiers: Chronicity: acute Qualified Code(s): M25.512 - Pain in left shoulder (2) Atypical nevi: Code(s): D22.9 - Melanocytic nevi, unspecified Category: Medical (3) Hyperlipidemia: Code(s): E78.5 - Hyperlipidemia, unspecified Category: Medical Qualifiers: Hyperlipidemia type: unspecified Qualified Code(s): E78.5 - Hyperlipidemia, unspecified Plan 58 year old female presenting to [facility] Past medical, surgical, social reviewed Left shoulder pain-referral to orthopedics Atypical nevi-referred to dermatology Labs ordered Orders: Orders Complete Blood Count Auto Diff 08/06/24 E78.5 - Hyperlipidemia, unspecified, M25.512 - Pain in left shoulder, W19.XXXA - Unspecified fall, initial encounter, Z13.0 - Encounter for screening for diseases of the blood and blood-forming organs and certain disorders involving the immune mechanism, Z86.39 - Personal history of other endocrine, nutritional and metabolic disease Comprehensive Met. Panel 08/06/24 E78.5 - Hyperlipidemia, unspecified, M25.512 - Pain in left shoulder, W19.XXXA - Unspecified fall, initial encounter, Z13.0 - Encounter for screening for diseases of the blood and blood-forming organs and certain disorders involving the immune mechanism, Z86.39 - Personal history of other endocrine, nutritional and metabolic disease Lyme IgG/IgM w/reflex to WB 08/06/24 E78.5 - Hyperlipidemia, unspecified, M25.512 - Pain in left shoulder, W19.XXXA - Unspecified fall, initial encounter, Z13.0 - Encounter for screening for diseases of the blood and blood-forming organs and certain disorders involving the immune mechanism, Z86.39 - Personal history of other endocrine, nutritional and metabolic disease Lipid Panel 08/06/24 E78.5 - Hyperlipidemia, unspecified, M25.512 - Pain in left shoulder, W19.XXXA - Unspecified fall, initial encounter, Z13.0 - Encounter for screening for diseases of the blood and blood-forming organs and certain disorders involving the immune mechanism, Z86.39 - Personal history of other endocrine, nutritional and metabolic disease XR shoulder LT min 2V 08/06/24 E78.5 - Hyperlipidemia, unspecified, M25.512 - Pain in left shoulder, W19.XXXA - Unspecified fall, initial encounter, Z13.0 - Encounter for screening for diseases of the blood and blood-forming organs and certain disorders involving the immune mechanism, Z86.39 - Personal history of other endocrine, nutritional and metabolic disease TSH reflex Free T4 08/06/24 E78.5 - Hyperlipidemia, unspecified, M25.512 - Pain in left shoulder, W19.XXXA - Unspecified fall, initial encounter, Z13.0 - Encounter for screening for diseases of the blood and blood-forming organs and certain disorders involving the immune mechanism, Z86.39 - Personal history of other endocrine, nutritional and metabolic disease Referrals Orthopedics Referral E78.5 - Hyperlipidemia, unspecified, M25.512 - Pain in left shoulder, W19.XXXA - Unspecified fall, initial encounter, Z13.0 - Encounter for screening for diseases of the blood and blood-forming organs and certain disorders involving the immune mechanism, Z86.39 - Personal history of other endocrine, nutritional and metabolic disease Dermatology Referral D22.9 - Melanocytic nevi, unspecified Medications: New atorvastatin 20 mg PO DAILY 90 tabs 3RF
--- OUTSIDE RECORDS SUMMARY | 2024-08-05 15:30 | XMS_ITS | Patient Health Record ---
Author Organization [facility] Address [address] [place] [address] Care Team Providers Care Camera Technician Name Role Phone Karthik Lujan MD Primary Care Provider Brandan Gutierrez Jr Unavailable Allergies No Known Allergies Results Component Value Reference Range Notes Pathology Reviewed date:07/01/2024 09:06:38 AM Interpretation: Performing Lab:[facility], [address] [place] [phone] Notes/Report: Name: Magali Wood Age/Sex: 58/F : 1965 Unit#: [id number] Attend Dr: Brandan Liu MD Re06/25/24 Status : [facility] Location: [facility] Disch: SPEC : [id number] RECD : 06/25/24 STATUS: STEPHANIE BRAVO NUM: [id number] ELIJAH: 06/25/[address] [facility] DR: Brandan Liu MD ENTERED: 06/25/24 SP TYPE: Surgical OTHR DR: ORDERED: HE Stain/3, Gross Micro L4 Diagnosis Colon, at 20 cm, jhonny yp: Hyperplastic polyp. Clinical History Pre-Op Dx: Screening Post-Op Dx: Colon polyp Microscopic Description Microscopic sections reviewed. Material Received Polyp at 20 cm Gross Description Received in formalin labeled ?polyp at 20 cm? are 2 fragments of guerrero-white soft tissue measuring 0.3 and 0. 3 cm in greatest dimension which are wrapped in lens paper and entirely submitted for micros copic examination, 2 pieces in cassette A. ([facility]) Signed (si gnature on file) Celestina Downs 06/28/24 1045 END OF REPORT Reason For Referral Referring Provider First Name Karthik Referring Provider Last Name Tai Referring Provider Speciality Internal M edicine Referred Organization [facility] Referred Provider Brandan Liu Jr Referred Address [address] [place] [phone], Referred Provider Specialty Gastroentero logy General Notes Merna [place] 025 03:56:31 PM EST greater than requested a [facility] referral for visit with Dr trivedi on [phone], Rector, Merna 05/11/2024 10:57:46 AM greater thancalled pt to have her request a referral too., Merna [place] 05/11/2024 01:18:58 PM greater thanno referral required per Dr. Lujan's office, Merna [place] 06/10/2024 09:41:17 AM Pt was informed by Dr. Lujan's office that the referral on file is valid., Merna [place] 06/10/2024 11:35:59 AM pt stated [facility] told her no referral was not required Referral Priority Routine Medications Medication SIG (Take, [...] Problem Status W/U Status Risk Notes Problem [id number] Colon cancer screening (Z12.11) Active confirmed Problem [id number] Encounter for other preprocedural examination (Z01.818) Active confirmed Vital Signs Temperature 97.1 degrees Fahrenheit 05/17/2024 Blood pressure diastolic 01 mm Hg 05/17/2024 Height 71 in 05/17/2024 Blood pressure systolic 001 mm Hg 05/17/2024 Weight 169 lbs 05/17/2024 BMI 23.57 kg/m2 05/17/2024 Encounters Encounter Location Date Provider Diagnosis [facility] [address] [place] [id number] 06/25/2024 Brandan Liu Jr Colon cancer screening Z12.11 ; Personal history of adenomatous and serrated colon polyps Z86.0101 and Colon polyps K63.5 [facility] [address] [place] [phone] 05/17/2024 Brandan Liu Jr Colon cancer screening Z12.11 and Encounter for other preprocedural examination Z01.818 [facility] [address] [place] [phone] 05/05/2024 Brandan Liu Jr [facility] [address] [place] [phone] 06/23/2024 Brandan Liu Jr [facility] [address] [place] [phone] 07/01/2024 Brandan Liu Jr Assessments Encounter Date Diagnosis (ICD Code) Assessment Notes Treatment Notes Treatment Clinical Notes Section Notes 06/25/2024 Colon cancer screening (ICD-10 - Z12.11) 06/25/2024 Personal history of adenomatous and serrated colon polyps (ICD-10 - Z86.0101) 05/17/2024 Colon cancer screening (ICD-10 - Z12.11) Colonoscopy material was printed We discussed colonoscopy today. We discussed risks and benefits of the procedure today. She understands these and agrees to proceed. This will be scheduled at her convenience. 05/17/2024 Encounter for other preprocedural examination (ICD-10 - Z01.818) We discussed colonoscopy today. We discussed risks and benefits of the procedure today. She understands these and agrees to proceed. This will be scheduled at her convenience. 06/25/2024 Colon polyps (ICD-10 - K63.5) Plan Of Treatment Future Test Test Name Order Date COLONOSCOPY 05/17/2024 Insurance Providers Payer Name Payer Address Payer Phone Subscriber Number Group Number Insured Name Patient Relationship to Insured Coverage Start Date Coverage End Date [employer] [address] [place] [id number] [phone] [id number] MAGALI WOOD Self - patient is the insured Medical (General) History Medical History History ICD Code Hyperlipidemia psoriasis Colonoscopy 05/13, [place] ous adenoma and sessile serrated polyp, 5-year follow-up Surgical History Surgery Date(Month/Year) thyroid surgery
--- OUTSIDE RECORDS SUMMARY | 2024-08-05 15:30 | XMS_ITS ---
Author Organization [facility] Address [address] [place] [address] Care Team Providers Care Post Secondary Professional Name Role Phone Karthik Lujan MD Primary Care Provider Brandan Gutierrez Jr REASON FOR VISIT pathology Encounters Encounter Location Date Provider Diagnosis [facility] [address] [place] [address] 07/01/2024 Brandan Liu Jr Plan Of Treatment No Information Progress Notes * KEI WOODENDOB: 7 (58 yo F)Acc No.[id number]:07/01/2024 Patient:?ABELARDO WOOD :1965???Age:58 Y???Sex:Female Address:[address] [facility], [place], [address] * true * Date:? Generated for Jim hampton/Anthony/eTransmitting on:?08/05/2024 03:30 PM EDT
--- OUTSIDE RECORDS SUMMARY | 2024-08-05 15:30 | XMS_ITS ---
Author Organization [facility] Address [address] [place] [address] Care Team Providers Care Operations Management Professionals Name Role Phone Karthik Lujan MD Primary Care Provider Brandan Gutierrez Jr REASON FOR VISIT note locked Encounters Encounter Location Date Provider Diagnosis [facility] [address] [place] [address] 06/23/2024 Brandan Liu Jr Plan Of Treatment No Information Progress Notes * KEI WOODENDOB: 7 (58 yo F)Acc No.[id number]:06/23/2024 Patient:?ABELARDO WOOD :1965???Age:58 Y???Sex:Female Address:[address] [facility] [facility] [facility], [place], [address] * true * Date:? Generated for Jim hampton/Anthony/eTransmitting on:?08/05/2024 03:30 PM EDT
--- OUTSIDE RECORDS SUMMARY | 2024-08-05 15:31 | XMS_ITS ---
Author Organization [facility] Address [address] [place] [address] Care Team Providers Care Crane Oiler Name Role Phone Karthik Lujan MD Primary Care Provider Brandan Gutierrez Jr [phone] REASON FOR VISIT screening Encounters Encounter Location Date Provider Diagnosis [facility] Out[facility] [address] [place], [place] [id number] 06/25/2024 Brandan Liu Jr Colon cancer screening [...] Treatment No Information Progress Notes * MARLEN WOODWINSTONENDOB: 7 (58 yo F)Acc No.[id number]:06/25/2024 COLON WITH MAC Patient:?ABELARDO WOOD Provider:?Brandan Liu MD :1965???Age:58 Y???Sex:Female D ate:06/25/2024 Address: [place] [address] [facility] Pcp:Karthik Lujan MD Subjective: * Chief Complaints: * ???1. Screening. * Medical History:? Objective: * Vitals:? Assessment: * Assessment: 1.?Colon cancer screening - Z12.11 (Primary)???2.?Personal history of adenomatous and serrated colon polyps - Z86.0101???3.?Colon polyps - K63.5??? Plan: * Treatment: * Procedure Codes:?09056 COLON OSCOPY AND BIOPSY, 0529F INTRVL 3+YRS PTS CLNSCP DOCD * * The named appointment provid er may or may not be the originator of this progress note, and it is not deemed complete until electronically signed by the appointment provider. Sign off status: Pending * Provider:?Brandan Liu MD Date:?0 06/25/2024 Generated for Jim hampton/Anthony/Leonelitting on:?08/05/2024 03:30 PM EDT
== END 2024-08-05 15:58 | disposition home or self-care (01) ==
LOC: HO.HMCHD 14:44
PROVIDERS: Visit Provider Internal Medicine
DX: M25.512 Pain in left shoulder (principal); D22.9 Melanocytic nevi, unspecified; E78.5 Hyperlipidemia, unspecified

== ENCOUNTER → 2024-08-05 14:43 | Outpatient (BNVA) | payer OTHER, SELFPAY | PROVIDERS: Visit Provider Internal Medicine | DX: M25.512 Pain in left shoulder (principal); I10 Essential (primary) hypertension; E78.5 Hyperlipidemia, unspecified; E03.9 Hypothyroidism, unspecified; M54.50 Low back pain, unspecified; D22.9 Melanocytic nevi, unspecified; Z91.81 History of falling; Z86.0100 Personal history of colon polyps, unspecified | CPT/HCPCS: 96127 ==

== ENCOUNTER 2024-08-06 06:13 | Outpatient (REF) | payer OTHER, SELFPAY ==
--- NOTE | ~2024-08-06 | XR_ITS ---
EXAMINATION: XR SHOULDER 2 OR MORE VIEWS LEFT HISTORY: M25.512 - Pain in left shoulder COMPARISON: There are no prior studies available for comparison. FINDINGS: Four views of the left shoulder are submitted. Osseous mineralization is normal. There is no fracture or dislocation. The glenohumeral joint is maintained. There is minimal degenerative change of the AC joint with inferior osteophyte formation. The soft tissues are unremarkable. XR/XR shoulder LT min 2V IMPRESSION: Minimal degenerative change of the AC joint. Otherwise unremarkable examination of the left shoulder. Electronically signed by: Gabo Medellin MD 08/06/2024 08:19 AM EDT
--- OUTSIDE RECORDS SUMMARY | 2024-08-06 06:16 | XMS_ITS ---
Author Organization [facility] Address [address] [place] [address] Care Team Providers Care Caramel Candy Maker Helper Name Role Phone Karthik Lujan MD Primary Care Provider Brandan Gutierrez Jr REASON FOR VISIT screening Encounters Encounter Location Date Provider Diagnosis [facility] Out[facility] [address] [place], [place] [id number] 06/25/2024 Brandan Liu Jr Colon cancer screening [...] * KEI WOODENDOB: 7 (58 yo F)Acc No.[id number]:06/25/2024 COLON WITH MAC Patient:?ABELARDO WOOD Provider:?Brandan Liu MD :1965???Age:58 Y???Sex:Female D ate:06/25/2024 Address: [address] [facility] Pcp:Karthik Lujan MD Subjective: * Chief Complaints: * ???1. Screening. * Medical History:? Objective: * Vitals:? Assessment: * Assessment: 1.?Colon cancer screening - Z12.11 (Primary)???2.?Personal history of adenomatous and serrated colon polyps - Z86.0101???3.?Colon polyps - K63.5??? Plan: * Treatment: * Procedure Codes:?60440 COLON OSCOPY AND BIOPSY, 0529F INTRVL 3+YRS PTS CLNSCP DOCD * * The named appointment provid er may or may not be the originator of this progress note, and it is not deemed complete until electronically signed by the appointment provider. Sign off status: Pending * Provider:?Brandan Liu MD Date:?0 06/25/2024 Generated for Jim hampton/Anthony/Leonelitting on:?08/06/2024 06:16 AM EDT
--- OUTSIDE RECORDS SUMMARY | 2024-08-06 06:16 | XMS_ITS ---
Author Organization [facility] Address [address] [place] [address] Care Team Providers Care Forensic Artist Name Role Phone Karthik Lujan MD Primary Care Provider Brandan Gutierrez Jr [phone] REASON FOR VISIT pathology Encounters Encounter Location Date Provider Diagnosis [facility] [address] [place] [address] 07/01/2024 Brandan Liu Jr Plan Of Treatment No Information Progress Notes * KEI WOODENDOB: 7 (58 yo F)Acc No.[id number]:07/01/2024 Patient:?ABELARDO OWOD :1965???Age:58 Y???Sex:Female Address:[address] [facility], [place], [address] * true * Date:? Generated for Jim hampton/Anthony/eTransmitting on:?08/06/2024 06:15 AM EDT
--- OUTSIDE RECORDS SUMMARY | 2024-08-06 06:16 | XMS_ITS | Patient Health Record ---
Author Organization [facility] Address [address] [place] [address] Care Team Providers Care Space Studies Faculty Member Name Role Phone Karthik Lujan MD Primary Care Provider Brandan Gutierrez Jr Unavailable Allergies No Known Allergies Results Component Value Reference Range Notes Pathology Reviewed date:07/01/2024 09:06:38 AM Interpretation: Performing Lab:[facility], [address] [place] [id number] Notes/Report: Name: Magali Wood Age/Sex: 58/F : 1965 Unit#: [id number] Attend Dr: Brandan Liu MD Re06/25/24 Status : [facility] Location: [facility] Disch: SPEC : [id number] RECD : 06/25/24 STATUS: STEPHANIE BRAVO NUM: [id number] ELIJAH: 06/25/[address] [facility] [address]: Brandan Liu MD ENTERED: 06/25/24 SP [...] copic examination, 2 pieces in cassette A. ([facility]) Signed (si gnature on file) Celestina Downs 06/28/24 1045 END OF REPORT Reason For Referral Referring Provider First Name Karthik Referring Provider Last Name Tai Referring Provider Speciality Internal M edicine Referred Organization [facility] Referred Provider Brandan Liu Jr Referred Address [address] [place] [phone], Referred Provider Specialty Gastroentero logy General Notes Merna Angeles 025 03:56:31 PM EST greater than requested a [facility] referral for visit with Dr trivedi on [phone], Seguin, Merna 05/11/2024 10:57:46 AM greater thancalled pt to have her request a referral too., Merna Angeles 05/11/2024 01:18:58 PM greater thanno referral required per Dr. Lujan's office, Merna Angeles 06/10/2024 09:41:17 AM Pt was informed by Dr. Lujan's office that the referral on file is valid., Merna Angeles 06/10/2024 11:35:59 AM pt stated [facility] told her no referral was not required [...] Problem Status W/U Status Risk Notes Problem 850093100 Colon cancer screening (Z12.11) Active confirmed Problem 179280337 Encounter for other preprocedural examination (Z01.818) Active confirmed Vital Signs Temperature 97.1 degrees Fahrenheit 05/17/2024 Blood pressure diastolic 01 mm Hg 05/17/2024 Height 71 in 05/17/2024 Blood pressure systolic 001 mm Hg 05/17/2024 Weight 169 lbs 05/17/2024 BMI 23.57 kg/m2 05/17/2024 Encounters Encounter Location Date Provider Diagnosis [facility] [address] [place] [id number] 06/25/2024 Brandan Liu Jr Colon cancer screening Z12.11 ; Personal history of adenomatous and serrated colon polyps Z86.0101 and Colon polyps K63.5 [facility] [address] [place] [phone] 05/17/2024 Brandan Liu Jr Colon cancer screening Z12.11 and Encounter for other preprocedural examination Z01.818 [facility] [address] [place] [phone] 05/05/2024 Brandan Liu Jr [facility] [address] [place] [phone] 06/23/2024 Brandan Liu Jr [facility] [address] [place] [phone] 07/01/2024 Brandan Liu Jr Assessments Encounter Date [...] Insured Coverage Start Date Coverage End Date [place] [place] [employer] [address] [place] [id number] [id number] MAGALI WOOD Self - patient is the insured Medical (General) History Medical History History ICD Code Hyperlipidemia psoriasis Colonoscopy 05/13, tubulovill ous adenoma and sessile serrated polyp, 5-year follow-up Surgical History Surgery Date(Month/Year) thyroid surgery
--- OUTSIDE RECORDS SUMMARY | 2024-08-06 06:16 | XMS_ITS ---
Author Organization [facility] Address [address] [place] [address] Care Team Providers Care Cashiers Bussers Food Runners Name Role Phone Karthik Lujan MD Primary Care Provider Brandan Gutierrez Jr REASON FOR VISIT note locked Encounters Encounter Location Date Provider Diagnosis [facility] [address] [place] [address] 06/23/2024 Brandan Liu Jr Plan Of Treatment No Information Progress Notes * KEI WOODENDOB: 7 (58 yo F)Acc No.[id number]:06/23/2024 Patient:?ABELARDO WOOD :1965???Age:58 Y???Sex:Female Address:[address] [facility], [place], [address] * true * Date:? Generated for Jim hampton/Anthony/eTransmitting on:?08/06/2024 06:16 AM EDT
[2024-08-06 06:38] LABS: MANUAL DIFF FLAG NO
[2024-08-06 07:43] LABS: Basophils Absolute Auto 0.1 X10*3/uL (0.0-0.2); Basophils Percent Auto 1.3 % (0-2); Eosinophils Absolute Auto 0.2 X10*3/uL (0.0-0.4); Eosinophils Percent Auto 3.1 % (0-4); Hematocrit 41.1 % (37.0-47.0); Hemoglobin 13.7 g/dl (12.0-16.0); Imm Gran Abs Auto 0.01 X10*3/uL (0.00-0.03); Imm Gran Pct Auto 0.2 % (0.0-0.4); Lymphocytes Absolute Auto 1.8 X10*3/uL (1.2-4.9); Lymphocytes Percent Auto 32.4 % (20-40); Mean Corpuscular HGB Conc 33.3 g/dl (31.0-35.0); Mean Corpuscular Hemoglobin 29.8 pg (27.0-33.0); Mean Corpuscular Volume 89.5 fL (80.0-98.0); Mean Platelet Volume 11.1 fL (9.4-12.3); Monocytes Absolute Auto 0.5 X10*3/uL (0.1-1.2); Monocytes Percent Auto 8.1 % (2-11); Neutrophils Absolute Auto 3.1 x10*3/uL (2.0-8.3); Neutrophils Percent Auto 54.9 % (45-73); Platelet Count 234 X10*3/uL (160-400); Red Blood Count 4.59 X10*6/uL (4.20-5.50); Red Cell Distribution Width 12.8 % (11.0-16.0); White Blood Count 5.6 X10*3/uL (4.8-10.8)
[2024-08-06 08:11] LABS: Alanine Aminotransferase 22 U/L (0-31); Albumin Level 4.6 g/dL (3.5-5.0); Alkaline Phosphatase 89 U/L (39-117); Anion Gap 11 (12-20); Aspartate Amino Transferase 19 U/L (5-31); Bilirubin Total 0.3 mg/dL (0.0-1.0); Blood Urea Nitrogen 15 mg/dL (9-16); Calcium 9.7 mg/dL (8.4-10.2); Carbon Dioxide 25 mmol/L (22-29); Chloride 108 mmol/L (96-108); Cholesterol 190 mg/dL (<200); Estimated Glomerular Filt Rate > 60; Glucose Random 100 mg/dL (60-115); HDL Cholesterol 43 mg/dL (>40); LDL Cholesterol Calculated 126 mg/dL (<100); Potassium 4.2 mmol/L (3.3-5.1); Sodium 140 mmol/L (135-145); TSH reflex Free T4 2.04 uIU/mL (0.32-4.0); Total Protein 7.2 g/dL (6.5-8.0); Triglycerides 107 mg/dL (<150)
[2024-08-09 23:24] LABS: Lyme Abs Screen <0.90 index
== END 2024-08-06 06:14 | disposition home or self-care (01) ==
LOC: HO.XRAY 06:13
PROVIDERS: PCP Internal Medicine; Visit Provider Internal Medicine
DX: M25.512 Pain in left shoulder (principal); E78.5 Hyperlipidemia, unspecified; Z86.39 Personal history of other endocrine, nutritional and metabolic disease; Z13.0 Encounter for screening for diseases of the blood and blood-forming organs and certain disorders involving the immune mechanism
CPT/HCPCS: 36415; 73030; 80053; 80061; 84443; 85025; 86617; 86618

== ENCOUNTER → 2024-08-06 06:17 | Outpatient (BNV) | payer OTHER, SELFPAY | PROVIDERS: PCP Internal Medicine; Visit Provider Radiology Diagnostic Radiology | DX: M25.512 Pain in left shoulder (principal) | CPT/HCPCS: 73030 ==

== ENCOUNTER 2024-11-24 14:14 | Outpatient (REF) | payer OTHER, SELFPAY ==
--- OUTSIDE RECORDS SUMMARY | 2024-06-25 04:20 | XMS_ITS ---
Author Organization 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 Name Role Phone Tai (RETIRED) Karthik DICKINSON Primary Care Provide r Judy Liu Jr, Brandan Kim REASON FOR VISIT screening Encounters Encounter Location Date Provider Diagnosis [facility] [address] [place] [phone] 06/25/2024 Brandan Liu Jr Colon cancer screening Z12.11 ; Personal history of adenomatous and serrated colon polyps Z86.0101 and Colon polyps K63.5 Assessments Encounter Date Diagnosis (ICD Code) Assessment Notes Treatment Notes Treatment Clinical Notes Section Notes 06/25/2024 Colon cancer screening (ICD-10 - Z12.11) 06/25/2024 Personal history of adenomatous and serrated colon polyps (ICD-10 - Z86.0101) 06/25/2024 Colon polyps (ICD-10 - K63.5) Plan Of Treatment No Information Progress Notes * MARLEN WOODMIRELAOB: 7 (58 yo F)Acc No.[id number]:06/25/2024 COLON WITH MAC Patient: ABELARDO GRIGSBY Provider: Héctor Liu MD :1965 A ge:58 Y S ex:Female Date:06/25/2024 Address:[address] [place] [address] [address] [id number] Pcp:Karthik Lujan (RETIRED )MD Subjective: * Chief Complaints: * 1 . Screening. * Medical History: Objective: * Vitals: Assessment: * Assessment: 1. C olon cancer screening - Z12.11 (Primary) 2 . P ersonal history of adenomatous and serrated colon polyps - Z86.0101 3 . C olon polyps - K63.5 ? Plan: * Treatment: * Procedure Codes: 4 5380 COLONOSCOPY AND BIOPSY, 0529F INTRVL 3+YRS PTS CLNSCP DOCD * * The named appointment provid er may or may not be the originator of this progress note, and it is not deemed complete until electronically signed by the appointment provider. Sign off status: Pending * Provider: Héctor Liu MD Date: 0 06/25/2024 Generated for Jim hampton/Anthony/Leonelitting on: 0 11/24/2024 04:35 PM EDT
--- OUTSIDE RECORDS SUMMARY | 2024-11-24 16:35 | XMS_ITS | Patient Health Record ---
Author Organization [facility] Address [address] [place] [address] Care Team Providers Care Sanitation Officer Name Role Phone Tai (RETIRED) Karthik DICKINSON Primary Care Provide r Unavailable Brandan Liu Jr Unavailable Allergies No Known Allergies Results Component Value Reference Range Notes Pathology Reviewed date:07/01/2024 09:06:38 AM Interpretation: Performing Lab:[facility], [address] [place] [phone] Notes/Report: Reason For Referral Referring Provider First Name Karthik Referring Provider Last Name Tai (RETI RED) Referring Provider Speciality Internal M edicine Referred Organization [facility] Referred Provider Brandan Liu Jr Referred Address [address], [address],[place], [place],[address], Referred Provider Specialty Gastroentero logy General Notes Merna Angeles 025 03:56:31 PM EST greater than requested a [facility] referral for visit with Dr trivedi on [phone], Merna Angeles 05/11/2024 10:57:46 AM greater thancalled pt to have her request a referral too., Merna Angeles 05/11/2024 01:18:58 PM greater thanno referral required per Dr. Lujan's office, Merna [place] 06/10/2024 09:41:17 AM Pt was informed by Dr. Lujan's office that the referral on file is valid., Merna [place] 06/10/2024 11:35:59 AM pt stated [facility] told her no referral was not [...] Problem Status W/U Status Risk Notes Problem 148738039 Colon cancer screening (Z12.11) Active confirmed Problem 025425832 Encounter for other preprocedural examination (Z01.818) Active confirmed Vital Signs Temperature 97.1 degrees Fahrenheit 05/17/2024 Blood pressure diastolic 01 mm Hg 05/17/2024 Height 71 in 05/17/2024 Blood pressure systolic 001 mm Hg 05/17/2024 Weight 169 lbs 05/17/2024 BMI 23.57 kg/m2 05/17/2024 Encounters Encounter Location Date Provider Diagnosis [facility] [place] [facility] Out[place] [address] [place] [id number] 06/25/2024 Brandan Liu Jr Colon cancer screening Z12.11 ; Personal history of adenomatous and serrated colon polyps Z86.0101 and Colon polyps K63.5 [facility] [address] [place] [phone] 05/17/2024 Brandan Liu Jr Colon cancer screening Z12.11 and Encounter for other preprocedural examination Z01.818 [facility] [address] [place] [phone] 05/05/2024 Brandan Liu Jr [facility] [address] [place] [phone] 06/23/2024 Brandan Liu Jr [facility] [address] [place] [phone] 07/01/2024 Brandan Liu Jr Assessments Encounter Date [...] Insured Coverage Start Date Coverage End Date [employer] [place] [employer] [address] [place] [id number] ABELARDO WOOD Self - patient is the insured Medical (General) History Medical History History ICD Code Hyperlipidemia psoriasis Colonoscopy 05/13, tubulovill ous adenoma and sessile serrated polyp, 5-year follow-up Surgical History Surgery Date(Month/Year) thyroid surgery
== END 2024-11-24 14:15 | disposition home or self-care (01) ==
LOC: HO.MAMMO 14:14
PROVIDERS: PCP Internal Medicine; Visit Provider Internal Medicine
DX: Z12.31 Encounter for screening mammogram for malignant neoplasm of breast (principal)
CPT/HCPCS: 77063; 77067

== ENCOUNTER → 2024-11-24 14:30 | Outpatient (BNV) | payer OTHER, SELFPAY | PROVIDERS: PCP Internal Medicine; Visit Provider Internal Medicine | DX: Z12.31 Encounter for screening mammogram for malignant neoplasm of breast (principal) | CPT/HCPCS: 77063; 77067 ==